=== PATIENT | female | born 1995 | race Caucasian/White ===

== ENCOUNTER → 2017-03-17 | Outpatient (CLI) | payer BC ==
[2017-03-19 14:15] LABS: HELICOBACTER PYLORI STOOL AG Negative (Negative)
== END ==
LOC: COL.LAB 14:07
PROVIDERS: Family Medicine
DX: R10.13 Epigastric pain (principal); Z88.1 Allergy status to other antibiotic agents; Z88.0 Allergy status to penicillin

== ENCOUNTER → 2018-06-10 | Outpatient (CLI) | payer BC, OTHER | LOC: COL.RAD 11:06 | DX: R22.32 Localized swelling, mass and lump, left upper limb (principal) ==